=== PATIENT | female | born 1970 | race Caucasian/White ===

== ENCOUNTER 2016-09-08 19:47 | Emergency (ER) | payer MEDICAID ==
[~2016-09-08] VITALS: Ht 170.2 cm; Wt 88.0 kg
[~2016-09-08 19:47] MED LIST: ALBU1.25 NEB; ALBUTEROL; AMIT25TA PO; COMBIVENT; FLOVENT; FLUT50DI INH; IBUP200T48 PO; IBUPROFEN; MORPHINE; NEURONTIN; OXYCODONE; PANT40GR; PANT40TA5 PO; PARO40TA45 PO; PROMETHAZINE; TIOT18CA INH
[2016-09-08 20:00] VITALS: BP 127/78
[2016-09-08] MEDS ORDERED: LORazepam 1MG TABLET ONE (20:19)
[2016-09-08] MEDS ORDERED: THIAMINE 100MG TABLET ONE (20:19)
[2016-09-08] MEDS ORDERED: ZIPRASIDONE 20 MG INJ IM ONE ×2 (20:28→20:30)
[2016-09-08] MEDS ORDERED: LORazepam 1MG TABLET PO ONE (20:30)
[2016-09-08] MEDS ORDERED: THIAMINE 100MG TABLET PO ONE (20:30)
== END 2016-09-09 02:01 | disposition home or self-care (01) ==
LOC: ED 09-09 01:55
DX: S00.81XA Abrasion of other part of head, initial encounter (principal); F10.120 Alcohol abuse with intoxication, uncomplicated; J44.9 Chronic obstructive pulmonary disease, unspecified; X58.XXXA Exposure to other specified factors, initial encounter; Y93.89 Activity, other specified; Y92.89 Other specified places as the place of occurrence of the external cause; Y99.8 Other external cause status
CPT/HCPCS: 96372; 99283; J3486